=== PATIENT | male | born 1945 | race Asian ===

== ENCOUNTER 2019-08-11 14:06 | Emergency (ER) | payer SELFPAY ==
[~2019-08-11] VITALS: Ht 170.2 cm; Wt 61.2 kg
[2019-08-11 14:11] VITALS: BP_SYST 162
--- NOTE | 2019-08-11 14:11 | NUR ---
Patient to ER bed 2 to gown for evaluation. Side rails up. Assumed care.
--- NOTE | 2019-08-11 14:17 | NUR ---
Patient arrived via [facility] ambulance for c/c of low back pain, and low abdominal pain. Patient has had x1 episode of bloody urine. Patient states only history of kidney stones. Patient doesn't take any medications or have any additional history. Pain is rated 6-7/10, and is sharp stabbing and radiating. Pain is worse with urination. Will continue to follow up and monitor.
--- NOTE | 2019-08-11 14:20 | NUR ---
ER at bedside examining patient.
[2019-08-11] MEDS ORDERED: NACL 0.9% 1,000 ML IV ONE (14:26)
[2019-08-11] MEDS ORDERED: KETOROLAC TROMETHAMINE 30 MG VIAL IVP ONE (14:30)
[2019-08-11] MEDS ORDERED: MORPHINE 4 MG/ML INJ. SYRINGE IVP ONE (14:30)
--- NOTE | 2019-08-11 14:32 | NUR ---
Patient resting comfortably, aware we are waiting for results and then we will know more about the treatment plan. Will continue to follow up.
[2019-08-11 15:01] LABS: BILIRUBIN,URINE NEGATIVE (NEGATIVE); BLOOD, URINE 3+ (NEGATIVE); CLARITY/URINE CLOUDY (CLEAR); COLOR,URINE RED (YELLOW); GLUCOSE,URINE NEGATIVE (NEGATIVE); KETONES,URINE 3+ (NEGATIVE); PROTEIN URINE 2+ (NEGATIVE)
--- NOTE | 2019-08-11 15:05 | NUR ---
# 20 gauge angiocath placed to right forearm. Use of asceptic technique. Opsite placed over site. Blood return noted. Blood for lab drawn from site. Flushed with 10 cc of normal saline. No evidence of infiltration noted. Patient tolerated well.
--- NOTE | 2019-08-11 15:13 | NUR ---
Patient brought back to bed from CT scan, patient resting comfortably after pain medication administration. Will continue to monitor patient for changes in status.
[2019-08-11 15:18] LABS: BASOPHILS # (AUTO) 0.1 K/uL (0.0-0.2); BASOPHILS % (AUTO) 0.6 % (0.0-2.0); HEMATOCRIT 49.7 % (36-54); HEMOGLOBIN 16.8 g/dL (14.0-18.0); LYMPHOCYTES # (AUTO) 0.4 K/uL (1.0-5.5); LYMPHOCYTES % (AUTO) 3.8 % (20.5-51.5); MEAN CORPUSCULAR HEMOGLOBIN 30 pg (27-31); MEAN CORPUSCULAR HGB CONC 34 % (32-36); MEAN CORPUSCULAR VOLUME 89 fL (79.0-98.0); MONOCYTES # (AUTO) 0.4 K/uL (0.0-1.0); MONOCYTES % (AUTO) 3.6 % (1.7-9.3); NEUTROPHILS # (AUTO) 9.5 K/uL (1.8-7.7); PLATELET COUNT (AUTO) 162 K/uL (130-430); RED BLOOD CELL COUNT(AUTO) 5.57 MIL/uL (4.2-6.2); RED CELL DISTRIBUTION WIDTH 13.6 % (9.0-15.0); WHITE BLOOD COUNT (AUTO) 10.3 K/uL (4.8-10.8)
[2019-08-11 15:34] LABS: ANION GAP 9 (5-15); CALCIUM 8.3 mg/dL (8.4-11.0); CHLORIDE 104 mmol/L (98-107); CREATININE 0.99 mg/dL (0.55-1.30); GLUCOSE 125 mg/dL (70-99); POTASSIUM 3.7 mmol/L (3.5-5.1); SODIUM SERUM 139 mmol/L (136-145); UREA NITROGEN, BLOOD 24 mg/dL (8-21)
[2019-08-11 15:39] LABS: ALANINE AMINOTRANSFERASE 26 U/L (12-78); ALBUMIN 3.9 g/dL (3.4-4.8); ASPARTATE AMINOTRANSFERASE 17 U/L (10-37); TOTAL BILIRUBIN 1.4 mg/dL (0.0-1.0)
[2019-08-11 16:12] LABS: LEUKOCYTE ESTERASE ,URINE TRACE (NEGATIVE); NITRITE, URINE POSITIVE (NEGATIVE); RBC,URINE >100 /HPF (0-3)
[2019-08-11 16:13] LABS: BACTERIA,URINE RARE /HPF (None Seen); WBC,URINE 0-3 /HPF (0-3)
[2019-08-11 17:12] VITALS: BP_SYST 151
--- NOTE | 2019-08-11 17:12 | NUR ---
Patient given written and verbal discharge instructions and verbalizes understanding. ER MD discussed with patient the results and treatment provided. Patient in stable condition. ID arm band removed. IV catheter removed intact and dressing applied, no active bleeding. Rx of naprosyn given. Patient educated on pain management and to follow up with PMD. Pain Scale 0/10. Opportunity for questions provided and answered. Medication side effect fact sheet provided.
== END 2019-08-11 17:12 | disposition home or self-care (01) ==
LOC: SED 14:06
DX: N20.0 Calculus of kidney (principal); R03.0 Elevated blood-pressure reading, without diagnosis of hypertension
CPT/HCPCS: 36415; 74176; 80053; 81000; 85025; 96374; 96375; 99284; J1885; J2270; J7030